=== PATIENT | female | born 1985 | race Two or more races ===

== ENCOUNTER 2023-10-28 19:24 | Emergency (ER) | payer OTHER ==
[~2023-10-28] VITALS: Ht 172.7 cm; Wt 73.9 kg
== END 2023-10-28 22:31 | disposition home or self-care (01) ==
LOC: ER 19:25
DX: S61.225A Laceration with foreign body of left ring finger without damage to nail, initial encounter (principal); W26.0XXA Contact with knife, initial encounter; Y93.89 Activity, other specified; Y92.89 Other specified places as the place of occurrence of the external cause

== ENCOUNTER 2023-11-07 08:01 | Emergency (ER) | payer OTHER ==
[~2023-11-07] VITALS: Ht 172.7 cm; Wt 74.8 kg
== END 2023-11-07 08:46 | disposition home or self-care (01) ==
LOC: ER 08:02
DX: Z48.02 Encounter for removal of sutures (principal)

== ENCOUNTER 2024-08-08 15:16 | Emergency (ER) | payer OTHER ==
[~2024-08-08] VITALS: Ht 172.7 cm; Wt 73.9 kg
[2024-08-08 15:51] VITALS: BP 134/81; O2SAT 99
[2024-08-08 16:44] LABS: BASO % 0.7 % (0.1-1.2); EOS # 0.37 (0.04-0.54); EOS % 4.4 % (0.7-7.0); HEMATOCRIT 39.3 % (34.1-44.9); LYMPH # 2.93 (1.18-3.74); LYMPH % 34.5 % (19.3-53.1); MEAN CORPUSCULAR HEMOGLOBIN 28.8 pg (25.6-32.2); MONO # 0.49 (0.24-0.82); MONO % 5.8 % (4.7-12.5); NEUT # 4.63 (1.56-6.13); NEUT % 54.5 % (34.0-71.1); PLATELET COUNT 196 K/uL (163-369); RED BLOOD COUNT 4.52 M/uL (3.93-5.22); RED CELL DISTRIBUTION WIDTH 12.9 % (11.6-14.4)
[2024-08-08 17:31] LABS: ALBUMIN 4.4 gm/dL (3.4-5.0); BILIRUBIN TOTAL 0.51 mg/dL (0.3-1.2); CALCIUM 8.9 mg/dL (8.5-10.1); CREATININE SERUM 0.74 mg/dL (0.55-1.02); GFR 87.37; GLOBULINA 3.5 G/DL (2.4-3.5); POTASSIUM 4.16 mEq/L (3.5-5.1); TOTAL PROTEIN 7.9 gm/dL (6.4-8.2)
== END 2024-08-08 18:53 | disposition home or self-care (01) ==
LOC: ER 15:23
PROVIDERS: Preventive Medicine Public Health & General Preventive Medicine
DX: R07.89 Other chest pain (principal)